=== PATIENT | male | born 1975 | race Hispanic/Latino ===

== ENCOUNTER 2021-10-18 12:59 | Emergency (ER) | payer SELFPAY ==
--- NOTE | ~2021-10-18 | CT_ITS ---
EXAMINATION: CT abdomen pelvis w con EXAM DATE: 10/18/2021 17:39 INDICATION: upper abdominal pain, nausea, transaminitis. TECHNIQUE: Spiral CT of the abdomen and pelvis was performed following intravenous injection of 100 m L Omnipaque 350. Axial, coronal and sagittal images of the abdomen and pelvis were reviewed. The do se-length product (DLP) for this examination was 1117.23 mGy-cm. The exposure was tailored according to patient size (auto mA exposure control), and iterative reconstruction (ASIR) was used as addition al dose reduction technique. There is no prior study for comparison. FINDINGS: There is hepatic steatosis without suspicious focal lesion identified. Spleen, adrenal glan ds, pancreas are unremarkable. Gallbladder is unremarkable. No biliary obstruction. Portal and spl enic veins are patent. Kidneys enhance symmetrically. There is no hydronephrosis. The prostate is unremarkable. The bladder is unremarkable. There is no retroperitoneal or pelvic lymphadenopathy. The appendix is normal. The stomach and small bowel are unremarkable. There is expected amount of c olonic stool. No free intraperitoneal gas. The heart is normal in size. There are no pericardial or pleural effusions. The lung bases are unremarkable. There are no osteoblastic or osteolytic les ions identified. IMPRESSION: Hepatic steatosis. Reviewed, dictated and finalized at location A. OR ADULTS DIRECTOR IMPRESSION: Hepatic steatosis.
--- NOTE | ~2021-10-18 | US_ITS ---
EXAMINATION: US abdomen limited DATE: 10/18/2021 16:39 INDICATION: Abdominal pain and nausea TECHNIQUE: Multiple grayscale and Doppler ultrasound images of the abdomen were obtained. COMPARISON: None available FINDINGS: The head and body of the pancreas are normal. The pancreatic tail is obscured by bowel gas. The liver is normal with normal echogenicity and echotexture. No surface nodularity. Normal hepatope stacy flow in the main portal vein. The gallbladder is normal with no abnormal wall thickening, pericho lecystic fluid or stones. The normal common bile duct measures 4 mm. There was no sonographic Stoner sign. IMPRESSION: 1. Normal sonographic study of the gallbladder. Reviewed, dictated and finalized at location A. ER MACHINE OPERATOR
[2021-10-18 13:14] VITALS: BP 168/99; PULSE 98; RESP 16; TEMP 35.8; O2SAT 100
[2021-10-18 13:34] LABS: Basophils Absolute Auto 0.1 K/mm3 (0.0-0.1); Basophils Percent Auto 0.9 % (0.2-1.2); Eosinophils Absolute Auto 0.1 K/mm3 (0-0.3); Eosinophils Percent Auto 1.8 % (0-4.4); Hematocrit 47.8 % (42.0-52.0); Hemoglobin 16.5 g/dL (14.0-18.0); Immature Granulocyte Absolute 0.01 K/mm3 (0.00-0.031); Immature Granulocyte Percent A 0.1 % (0-0.5); Lymphocytes Absolute Auto 2.53 K/mm3 (0.9-3.2); Lymphocytes Percent Auto 37.8 % (18.3-44.2); Mean Corpuscular HGB Conc 34.5 g/dl (32-36); Mean Corpuscular Hemoglobin 32.2 pg (26-34); Mean Corpuscular Volume 93.4 fl (80-100); Mean Platelet Volume 10.4 fl (7.4-10.4); Monocytes Absolute Auto 0.7 K/mm3 (0.1-0.6); Neutrophils Absolute Auto 3.3 K/mm3 (1.3-6.7); Neutrophils Percent Auto 49.4 % (45.5-73.1); Platelet Count Result 211 k/mm3 (150-375); Red Blood Count 5.12 M/mm3 (4.6-6.20); White Blood Count 6.7 K/mm3 (4.5-10.0)
[2021-10-18 13:47] LABS: Alanine Aminotransferase 143 U/L (4-50); Albumin Level 4.6 g/dL (3.5-5.1); Alkaline Phosphatase 169 U/L (38-126); Anion Gap 12 mmol/L (8-16); Aspartate Amino Transferase 81 U/L (17-59); Bilirubin,Total 0.9 mg/dL (0.2-1.3); Blood Urea Nitrogen 10 mg/dL (9-20); Calcium 9.5 mg/dL (8.4-10.2); Carbon Dioxide 23 mmol/L (22-30); Chloride 99 mmol/L (98-107); Estimated CRCL calculation 162 ml/min; Estimated Glomerular Filt Rate > 60; Glucose 395 mg/dL (65-110); Lipase 57 U/L (23-300); Potassium 4.2 mmol/L (3.4-5.0); Sodium 134 mmol/L (137-145)
[2021-10-18 15:01] VITALS: BP 178/96; PULSE 74; RESP 18; TEMP 36.6; O2SAT 100
--- NOTE | 2021-10-18 15:01 | PC.NURSE ---
pt brought into triage for re vital, pt reports there is no change since time of arrival.
--- NOTE | 2021-10-18 16:08 | ED.ABDPAIN ---
HPI - Abdominal Pain General Chief Complaint: Abdominal Pain <TIFFANIE Blackmon Last Filed: 10/18/21 18:23> Stated Complaint: ABD PAIN <TIFFANIE Blackmon Last Filed: 10/18/21 18:23> Time Seen by Provider: 10/18/21 15:53 <TIFFANIE Blackmon Last Filed: 10/18/21 18:23> Source: patient <TIFFANIE Blackmon Last Filed: 10/18/21 18:23> Mode of arrival: ambulatory <TIFFANIE Blackmon Last Filed: 10/18/21 18:23> Limitations: no limitations <TIFFANIE Blackmon Last Filed: 10/18/21 18:23> History of Present Illness HPI narrative: This is a 45 year old male that presents to the ER for medication refill. Reports he has been out of his Metformin for about a week. He has not been checking his blood sugar. Reports he has also been having some upper abdominal pain and nausea over the last couple of days. The pain is an intermittent dull ache. Denies fever, vomiting, dysuria, diarrhea, or hematochezia. <TIFFANIE Blackmon Last Filed: 10/18/21 18:23> Related Data Home Medications: Home Medications Medication Instructions Recorded Confirmed metformin 500 mg PO DAILY 10/18/21 <Magaly Avalos PA-C - Last Filed: 10/18/21 18:23> Allergies/Adverse Reactions: Allergies Allergy/AdvReac Type Severity Reaction Status Date / Time No Known Allergies Allergy Verified 10/18/21 17:03 <TIFFANIE Blackmon Last Filed: 10/18/21 18:23> Review of Systems Review of Systems: CONSTITUTIONAL: Denies fever GASTROINTESTINAL: Reports abdominal pain, nausea. Denies vomiting, or diarrhea. GENITOURINARY: Denies dysuria or hematuria. <TIFFANIE Blackmon Last Filed: 10/18/21 18:23> All systems reviewed & are unremarkable except as noted in HPI and below <TIFFANIE Blackmon Last Filed: 10/18/21 18:23> COUNT INCLUDES THE [facility] Past Medical History Medical History: Medical History (Updated 10/18/21 @ 18:21 by Magaly Avalos PA-C) History of diabetes mellitus <Magaly Avalos PA-C - Last Filed: 10/18/21 18:23> Social History Social History: Social History (Updated 10/18/21 @ 16:13 by Magaly Avalos PA-C) Smoking status: Never smoker Substance use: never <Magaly Avalos PA-C - Last Filed: 10/18/21 18:23> Exam Narrative: GENERAL: Well-appearing, well-nourished, and in no acute distress. HEAD: Normocephalic, atraumatic. EYES: EOMI. CHEST: Clear to auscultation. No respiratory distress. No wheezes rales or rhonchi HEART: Regular rate and rhythm. No murmur heard. Normal peripheral pulses. ABDOMEN: Soft, nondistended, normal active bowel sounds. Mild tenderness to palpation in the epigastrium, without guarding. No CVA tenderness EXTREMITIES: Normal range of motion. No edema. SKIN: Warm, dry, no rash. NEURO: No focal deficits. Alert and oriented x3. PSYCH: Normal mood and affect <Magaly Avalos PA-C - Last Filed: 10/18/21 18:23> Course CORE MAKER HELPER/PA Physician Supervision For this patient encounter, I reviewed the CORE MAKER HELPER or PA documentation, treatment plan, and medical decision making. <Humberto Coleman MD - Last Filed: 10/18/21 19:24> Vital Signs Vital signs: Vital Signs Temperature 96.4 F L 10/18/21 13:14 Pulse Rate 98 10/18/21 13:14 Respiratory Rate 16 10/18/21 13:14 Blood Pressure 168/99 H 10/18/21 13:14 Pulse Oximetry 100 10/18/21 13:14 Temperature 98 F 10/18/21 15:01 Pulse Rate 63 10/18/21 18:12 Respiratory Rate 16 10/18/21 18:12 Blood Pressure 178/96 H 10/18/21 15:01 Pulse Oximetry 100 10/18/21 18:12 <Magaly Avalos PA-C - Last Filed: 10/18/21 18:23> Vital Signs Temperature 96.4 F L 10/18/21 13:14 Pulse Rate 98 10/18/21 13:14 Respiratory Rate 16 10/18/21 13:14 Blood Pressure 168/99 H 10/18/21 13:14 Pulse Oximetry 100 10/18/21 13:14 Temperature 98 F 10/18/21 15:01 Pulse Rate 63 10/18/21 18:12 Respiratory Rate 16 10/18/21 18:12 Blood Pressure 1
--- NOTE | 2021-10-18 16:12 | ECG_ITS ---
Measurements Intervals [place] Rate: 71 P: 8 NC: 138 QRS: 22 QRSD: 90 T: 38 QT: 380 QTc: 414 Interpretive Statements SINUS RHYTHM NORMAL ECG Electronically Signed On 10-18-2021 20:21:04 SWITCH MAKER by Beny Salguero D.O.
[2021-10-18] MEDS: SODIUM CHLORIDE 0.9% IV 1,000 ML 999 ML IV CONT (17:01)
[2021-10-18 18:12] VITALS: PULSE 63; RESP 16; O2SAT 100
[2021-10-18 18:35] LABS: Add Urine Microscopic? YES; Appearance Urine Clear (Clear); Bilirubin Urine Negative (Negative); Blood Urine Negative (Negative); Color Urine Yellow (Yellow); Glucose Urine UA 3+ mg/dL (Negative); Ketones Urine Trace mg/dL (Negative); Leukocyte Esterase Ur Negative LEU/UL (Negative); Mucus Urine Rare /lpf; Nitrate Urine Negative (Negative); Protein Urine Negative (Negative); RBC Urine 0-2 /hpf (0-2); Squamous Epithelial Cell Urine Moderate /hpf (Few); Urobilinogen Urine Negative mg/dL (<2.0); WBC Urine 0-3 /hpf
[2021-10-18 18:38] LABS: Specific Grav Ur > 1.060 (1.001-1.035)
== END 2021-10-18 19:19 | disposition home or self-care (01) ==
PROVIDERS: Emergency Medicine; Emergency Provider Emergency Medicine
DX: E11.65 Type 2 diabetes mellitus with hyperglycemia (principal); K76.0 Fatty (change of) liver, not elsewhere classified; Z91.14 Patient's other noncompliance with medication regimen; Z79.84 Long term (current) use of oral hypoglycemic drugs
CPT/HCPCS: 36415; 74177; 76705; 80053; 81001; 83690; 85025; 93005; 96360; 99284; J7030; Q9967